=== PATIENT | male | born 1970 | race Hispanic/Latino ===

== ENCOUNTER → 2025-09-19 | Outpatient (CLI) | payer OTHER ==
--- NOTE | 2025-09-20 09:30 | HMCIMG ---
EXAM: CT Cardiac calcium scoring. CLINICAL HISTORY: Screening. TECHNIQUE: Thin collimated axial CT cardiac images were obtained. A CT scan is done according to ALARA (As Low As Reasonably Achievable). CONTRAST: None. COMPARISON: None provided. FINDINGS: Calcium Score: VESSEL Number of lesions Volume mm3 Equi. Mass/mg Calcium score LM 0 0.0 - 0.0 LAD 4 12.8 - 14.0 LCX 3 35.1 - 43.8 RCA 1 1.4 - 1.1 Total 8 49.2 - 58.9 IMPRESSION: The total calcium score is 58.9. 77th percentile. 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 /[place]
== END | disposition home or self-care (01) ==
LOC: RAH 14:12
PROVIDERS: ATTEND Internal Medicine
DX: Z13.6 Encounter for screening for cardiovascular disorders (principal); I77.810 Thoracic aortic ectasia
CPT/HCPCS: 75571